=== PATIENT | male | born 1960 | race Caucasian/White ===

== ENCOUNTER 2023-01-21 09:44 | Outpatient (CLI) | payer BC | END 2023-01-21 09:45 | disposition home or self-care (01) | LOC: CSHCT 09:44 | PROVIDERS: ATTEND Internal Medicine | DX: R93.3 Abnormal findings on diagnostic imaging of other parts of digestive tract (principal); D73.4 Cyst of spleen; R74.8 Abnormal levels of other serum enzymes; F10.10 Alcohol abuse, uncomplicated; D73.89 Other diseases of spleen | CPT/HCPCS: 74170; 82565 ==